=== PATIENT | male | born 1980 | race Caucasian/White ===

== ENCOUNTER 2017-06-17 16:00 | Emergency (ER) | payer OTHER ==
[~2017-06-17] VITALS: Ht 170.2 cm; Wt 78.5 kg
[2017-06-17] MEDS ORDERED: OMEP20TA63 PO (16:23)
[2017-06-17] MEDS ORDERED: AZIT1PAC PO (16:23)
[2017-06-17] MEDS ORDERED: ONDA4TAB10 SL (16:24)
--- NOTE | 2017-06-17 16:25 | PHYS DOC ---
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 He says that it hurts when he swallows and sometimes he feels as if he is going to vomit back up the liquid or food. Eat full meals and drink water with no difficulty he says it just gives him an uncomfortable sensation in his throat. He has had some fevers and chills but no neck stiffness headache or other systemic symptoms. Is that he does have some nasal congestion sinus pressure and left ear pain. He is in no obvious distress with normal vital signs. Review of Systems Review of Systems Constitutional: + fever, chills [] HENT: + nasal congestion, sore throat [] Respiratory: + non-productive cough. No shortness of breath [] GI: Denies abdominal pain. + nausea, vomiting. Physical Exam Physical Exam Constitutional: Well developed, well nourished, no acute distress, non-toxic appearance. [] HENT: Normocephalic, atraumatic, bilateral external ears normal, oropharynx moist. Pharynx appears erythematous but no peritonsillar abscess or swelling noted. Airway is very patent. He is able to swallow water in the room with no difficulty and no drooling or spitting up. Eyes: PERRLA, EOMI, conjunctiva normal, no discharge. [] Neck: Normal range of motion, no tenderness, supple, no stridor. [] Lungs & Thorax: Bilateral breath sounds clear to auscultation [] Abdomen: Bowel sounds normal, soft, no tenderness, no masses, no pulsatile masses. [] EKG EKG [] Radiology/Procedures Radiology/Procedures [] Course & Med Decision Making Course & Med Decision Making Patient with upper respiratory tract infection type symptoms with definite pharyngitis. I do not suspect esophagitis or esophageal foreign body as she is able to eat and drink in the contents pass. I will give him a dose of Decadron and a GI cocktail here and recommend NSAIDs Z-Eugene and Prilosec as an outpatient. Him and with his PCP in one week I told him if he is not improved by that time he may need a scope. Patient aware and agreeable with plan for discharge and verbalized understanding of the need for short-term follow-up in the strict ER return precautions discussed including worsening pain fevers vomiting or other general concerns. Dragon Disclaimer Dragon Disclaimer This chart was dictated in whole or in part using Voice Recognition software in a busy, high-work load, and often noisy Emergency Department environment. It may contain unintended and wholly unrecognized errors or omissions. Departure Departure: Impression: Primary Impression: Acute pharyngitis Additional Impression: URI (upper respiratory infection) Disposition: 01 HOME, SELF-CARE Condition: GOOD Referrals: DEEPAK CALVO DO (PCP) Patient Instructions: Viral and Bacterial Pharyngitis Additional Instructions: TAKE 400MG OF IBUPROFEN 2-3 TIMES DAILY AND TYLENOL 650MG 4 TIMES DAILY. YOU CAN ALSO TRY OTC MAALOX AND TUMS. OTC NASONEX MAY REDUCE YOUR POST NASAL DRIP. DRINK PLENTY OF FLUIDS AND EAT SOFT FOODS. FOLLOW WITH YOUR PCP IN 1 WEEK AND COME BACK TO THE ED SOONER WITH WORSENING PAIN, FEVERS, VOMITING, OR OTHER GENERAL CONCERNS. THANK YOU! Scripts Ondansetron (ZOFRAN ODT) 4 Mg Tab.rapdis 1 TAB SL Q8HRS, #10 TAB Prov: EN CHANG DO 06/17/17 Omeprazole Magnesium (PRILOSEC OTC) 20 Mg Tablet.dr 1 TAB PO DAILY, #15 TAB 0 Refills Prov: EN CHANG DO 06/17/17 Azithromycin (ZITHROMAX PACKET) 1 Gm Packet 1 PACKET PO ONCE, #1 PACKET Prov: EN CHANG DO 06/17/17 Problem Qualifiers Primary Impression: Acute pharyngitis Pharyngitis/tonsillitis etiology: unspecified etiology Qualified Codes: J02.9 - Acute pharyngitis, unspecified EN CHANG DO Jun 17, 2017 16:24
[2017-06-17 16:45] VITALS: BP 111/81
[2017-06-17] MEDS ORDERED: DEXAMETHASONE 4 MG TABLET PO ONE (16:45)
[2017-06-17] MEDS ORDERED: LIDO:MAALOX 1:1 20 ML SINGLE DOSE PO ONE (16:45)
== END 2017-06-17 16:45 | disposition home or self-care (01) ==
LOC: ER 16:00
DX: J06.9 Acute upper respiratory infection, unspecified (principal); H92.02 Otalgia, left ear
CPT/HCPCS: 99283; J8540